=== PATIENT | female | born 2000 | race Caucasian/White ===

== ENCOUNTER 2023-02-25 10:01 | Emergency (ER) | payer OTHER ==
[~2023-02-25] VITALS: Ht 172.7 cm; Wt 77.7 kg
[2023-02-25 10:53] LABS: BASOPHILS 0.4 % (0-2); EOSINOPHILS 0.2 % (0-6); HEMATOCRIT 41.7 % (35.0-50.0); HEMOGLOBIN 13.8 g/dL (12.0-18.0); LYMPHOCYTES 19.1 % (24-44); MCV 81.8 fl (81-99); MONOCYTES 8.7 % (0-12); NEUTROPHILS 71.6 % (39-80); PLATELET COUNT 380 K/uL (140-440); RDW 12.8 (10.5-15.0)
[2023-02-25 10:54] LABS: BILIRUBIN, URINE POSITIVE (negative); BLOOD/HGB, URINE NEGATIVE (Negative); KETONE, URINE SMALL (Negative); LEUK ESTERASE, URINE NEGATIVE (negative); NITRITE, URINE NEGATIVE (negative); PH, URINE 8.5 (5-7)
[2023-02-25 11:05] LABS: BACTERIA, URINE RARE /hpf (negative); CASTS, URINE NONE SEEN \\lpf; CRYSTALS, URINE NONE SEEN (0-1+); EPITHELIAL CELLS, URINE SQUAMOUS 4+ /lpf (0-1+); WHITE BLOOD CELLS, URINE 0-1 /HPF (0-5)
[2023-02-25 11:06] LABS: COLLECTION TYPE, URINE CLEAN CATCH; REFLEX CULTURE, URINE No (No)
[2023-02-25 11:08] LABS: ALBUMIN 3.7 g/dL (3.4-5.0); ALBUMIN/GLOBULIN RATIO 0.95 (1.1-2.4); ANION GAP 13.7 (7-21); BILIRUBIN, TOTAL 0.4 ng/dL (0.2-1.0); BUN/CREATININE RATIO 9.67 (6.0-28.6); CALCIUM 9.2 mg/dL (8.5-10.1); CREATININE, SERUM 0.62 mg/dL (0.55-1.02); POTASSIUM 2.7 mmol/L (3.5-5.1); PROTEIN, TOTAL 7.6 g/dL (6.4-8.2)
[2023-02-25] MEDS ORDERED: K-TAB ER20 MEQ PO (14:42)
[2023-02-25] MEDS ORDERED: PROMETHAZINE HC25 M1 PO (14:42)
[2023-02-25] MEDS ORDERED: PROMETHEGAN25 MG PR (14:42)
[2023-02-25 15:03] VITALS: BP 106/62
== END 2023-02-25 15:03 | disposition home or self-care (01) ==
LOC: ED 10:01
PROVIDERS: Emergency Medicine
DX: O21.1 Hyperemesis gravidarum with metabolic disturbance (principal); Z3A.09 9 weeks gestation of pregnancy
CPT/HCPCS: 36415; 80053; 81001; 84703; 85025; 96374; 96375; 96376; 99284-25; A9270; J0780; J3480; J7030